=== PATIENT | female | born 1995 | race Caucasian/White ===

== ENCOUNTER 2016-11-24 19:23 | Emergency (ER) | payer OTHER ==
[~2016-11-24] VITALS: Ht 162.6 cm; Wt 50.0 kg
[2016-11-24] MEDS ORDERED: SODIUM CHLOR 0.9% 1000 ML INJ 1,000 ML IV ONE (19:34)
[2016-11-24 19:38] VITALS: BP 126/79; PULSE 97; RESP 16; TEMP 97.8; O2SAT 100
--- NOTE | 2016-11-24 19:38 | PD ---
HPI Chief Complaint: syncope Time Seen by Provider: 19:25 Travel History International Travel<30 days: No Contact w/Intl Traveler<30days: No Traveled to known affect area: No History of Present Illness HPI This is a 21-year-old female who presents via EMS for evaluation of syncope. The patient reports that [place] with [place] boyfriend when she became lightheaded, had a syncopal event. She was caught and lowered to the ground, she did not fall. She returned to consciousness after being placed on the ground. She is currently complaining of some dizziness and lightheadedness. Blood glucose was 62 via EMS. The patient reports one episode of syncope 3 years ago. She reports that because she has a family history of SVT that was the initial concern. She reports that she wore a awake overnight monitor for one month and this was never captured or proven. She denies any recent illnesses, recent travel. She denies any headache, chest pain, she felt slight dyspnea immediately after the event. She denies any nausea, vomiting, abdominal pain, dysuria, fevers, chills. She is currently on her menstrual period. she denies any other complaints at this time. [facility] Social History Alcohol Use: No Tobacco Use: No Allergies-Medications (Allergen,Severity, Reaction): Coded Allergies: No Known Allergies (Unverified , 11/24/16) Reported Meds & Prescriptions Reported Meds & Active Scripts Active No Active Prescriptions or Reported Medications Review of Systems Except as stated in HPI: all other systems reviewed are Neg Physical Exam Narrative GENERAL: Well-developed well-nourished female in no acute distress SKIN: Warm and dry. HEAD: Atraumatic. Normocephalic. EYES: Pupils equal and round. No scleral icterus. No injection or drainage. ENT: No nasal bleeding or discharge. Mucous membranes pink and moist. NECK: Trachea midline. No JVD. CARDIOVASCULAR: Regular rate and rhythm. No murmur appreciated. RESPIRATORY: No accessory muscle use. Clear to auscultation. Breath sounds equal bilaterally. GASTROINTESTINAL: Abdomen soft, non-tender, nondistended. Hepatic and splenic margins not palpable. MUSCULOSKELETAL: No obvious deformities. No edema. NEUROLOGICAL: Awake and alert. No obvious cranial nerve deficits. Motor grossly within normal limits. Normal speech. PSYCHIATRIC: Appropriate mood and affect; insight and judgment normal. Data Data Last Documented VS Vital Signs Date Time Temp Pulse Resp B/P (MAP) Pulse Ox O2 Delivery O2 Flow Rate FiO2 11/24/16 21:24 97 18 116/67 (83) 99 Room Air 11/24/16 19:38 97.8 Orders Orders Electrocardiogram (11/24/16 19:34) Basic Metabolic Panel (Bmp) (11/24/16 19:34) Ed Urine Pregnancytest Poc (11/24/16 19:34) Complete Blood Count With Diff (11/24/16 19:34) Magnesium (Mg) (11/24/16 19:34) Ecg Monitoring (11/24/16 19:34) Iv Access Insert/Monitor (11/24/16 19:34) Oximetry (11/24/16 19:34) Sodium Chlor 0.9% 1000 Ml Inj (Ns 1000 M (11/24/16 19:34) Dextrose 50% In Chung (Syr) Inj (D50w (Syr (11/24/16 19:45) Potassium Chloride (Kcl) (11/24/16 21:45) Labs Laboratory Tests Test 11/24/16 20:41 White Blood Count 7.3 TH/MM3 Red Blood Count 4.17 MIL/MM3 Hemoglobin 12.4 GM/DL Hematocrit 37.3 % Mean Corpuscular Volume 89.4 FL Mean Corpuscular Hemoglobin 29.7 PG Mean Corpuscular Hemoglobin Concent 33.2 % Red Cell Distribution Width 13.4 % Platelet Count 280 TH/MM3 Mean Platelet Volume 8.8 FL Neutrophils (%) (Auto) 45.2 % Lymphocytes (%) (Auto) 40.5 % Monocytes (%) (Auto) 10.6 % Eosinophils (%) (Auto) 2.6 % Basophils (%) (Auto) 1.1 % Neutrophils # (Auto) 3.3 TH/MM3 Lymphocytes # (Auto) 3.0 TH/MM3 Monocytes # (Auto) 0.8 TH/MM3 Eosinophils # (Auto) 0.2 TH/MM3 Basophils # (Auto) 0.1 TH/MM3 CBC Comment DIFF FINAL Differential Comment Blood Urea Nitrogen 6 MG/DL Creatinine 0.55 MG/DL Random Glucose 78 MG/DL Calcium Level 8.8 MG/DL Magnesium Level 1.9 MG/DL Sodium Level 139 MEQ/L Potassium Level 3.3 MEQ/L Chloride Level 106 MEQ/L Carbon Dioxide Level 23.7 MEQ/L Anion Gap 9 MEQ/L Estimat Glomerular Filtration Rate 138 ML/MIN MDM Medical Decision Making Medical Screen Exam Complete: Yes Emergency Medical Condition: Yes Medical Record Reviewed: Yes Interpretation(s) EKG sinus rhythm Differential Diagnosis Hypoglycemia, electrolyte abnormality, symptomatic anemia, orthostatic hypotension, vasovagal reaction, arrhythmia Narrative Course The patient was placed on ECG monitoring and pulse oximetry. A 12-lead EKG was obtained. The patient was given D50 for her hypoglycemia. Plan is for basic lab work, IV fluids, additional monitoring. The patient declined need D50. Her blood sugar was rechecked here and her blood sugar was 82. Her lab work is been reviewed. Her potassium was slightly low at 3.3, otherwise her lab work was unremarkable. Upon examination she feels improved. At this point in time the patient is stable for discharge into the care of her family members. Diagnosis Primary Impression: Syncope Qualified Codes: R55 - Syncope and collapse Additional Instructions: Stay well hydrated and well-nourished, follow-up with primary care physician and return for any emergent medical conditions. Med/Other Pt SpecificInfo: No Change to Meds Scripts No Active Prescriptions or Reported Meds Disposition: 01 DISCHARGE HOME Condition: Stable Romero Mckeon Nov 24, 2016 19:38
[2016-11-24] MEDS ORDERED: DEXTROSE 50% IN WATER 50 ML SYRINGE IV PUSH ONE (19:45)
[2016-11-24 21:22] VITALS: O2SAT 100
[2016-11-24 21:24] VITALS: BP 116/67; PULSE 97; RESP 18; O2SAT 99
[2016-11-24 21:25] LABS: AUTOMATED NEUTROPHIL # 3.3 TH/MM3 (1.8-7.7); BASOPHIL # 0.1 TH/MM3 (0-0.2); BASOPHIL % 1.1 % (0.0-2.0); EOSINOPHIL # 0.2 TH/MM3 (0-0.4); EOSINOPHIL % 2.6 % (0.0-4.0); HEMATOCRIT 37.3 % (35.0-46.0); HEMO FLAGS DIFF FINAL; LYMPH % 40.5 % (9.0-44.0); MEAN CELL VOLUME 89.4 FL (80.0-100.0); MEAN CORPUSCULAR HEMOGLOBIN 29.7 PG (27.0-34.0); MEAN CORPUSCULAR HGB CONC 33.2 % (32.0-36.0); MONO % 10.6 % (0.0-8.0); NEUT % 45.2 % (16.0-70.0); PLATELET COUNT 280 TH/MM3 (150-450); RED BLOOD COUNT 4.17 MIL/MM3 (4.00-5.30); RED CELL DISTRIBUTION WIDTH 13.4 % (11.6-17.2); WHITE BLOOD COUNT 7.3 TH/MM3 (4.0-11.0)
[2016-11-24 21:33] LABS: BICARBONATE 23.7 MEQ/L (21.0-32.0); MAGNESIUM 1.9 MG/DL (1.5-2.5); POTASSIUM 3.3 MEQ/L (3.5-5.1)
[2016-11-24] MEDS ORDERED: POTASSIUM CHLORIDE 20 MEQ CONTROLLED RELEASE TAB PO ONE (21:45)
--- NOTE | 2016-11-25 05:55 | EKG ---
Date Performed: 11/24/2016 Time Performed: 19:51:17 PTAGE: 21 years EKG: Sinus rhythm NORMAL ECG NO PREVIOUS TRACING DOCTOR: Christos Robison Interpretating Date/Time 11/25/2016 05:53:31
== END 2016-11-24 22:07 | disposition home or self-care (01) ==
LOC: NEPE 19:23
DX: R55 Syncope and collapse (principal)
CPT/HCPCS: 80048; 83735; 84703; 85025; 93005; 96360; 99284; J7030